=== PATIENT | male | born 1980 | race African-American/Black ===

== ENCOUNTER 2017-11-18 23:28 | Emergency (ER) | payer MEDICAID ==
[~2017-11-18] VITALS: Ht 182.9 cm; Wt 90.9 kg
[2017-11-18] MEDS ORDERED: DIPH25 PO (23:46)
[2017-11-18] MEDS ORDERED: BUPR100 PO (23:46)
[2017-11-19] MEDS ORDERED: SODIUM CHLORIDE 0.9% 1,000 ML IV ONE
[2017-11-19] MEDS ORDERED: LORazepam 2 MG/ML VIAL IVP ONE (00:15)
[2017-11-19] MEDS ORDERED: LORazepam 2 MG/ML VIAL IM ONE (00:30)
[2017-11-19 00:38] LABS: BASOPHILS % (AUTO) 0.9 % (0.0-2.0); EOSINOPHILS % (AUTO) 0.4 % (1.0-6.0); HEMATOCRIT 45.7 % (41-53); HEMOGLOBIN 15.1 g/dL (13.5-17.5); LYMPHOCYTES # (AUTO) 1.3 K/uL (1.0-4.8); LYMPHOCYTES % (AUTO) 19.4 % (22.0-44.0); MEAN CORPUSCULAR HGB CONC 33.1 G/dL (31.0-37.0); MEAN CORPUSCULAR VOLUME 88 fL (80-100); MONOCYTES # (AUTO) 0.4 K/uL (0.1-1.0); MONOCYTES % (AUTO) 6.5 % (2.0-9.0); NEUTROPHILS # (AUTO) 4.7 K/uL (1.8-7.7); NEUTROPHILS % (AUTO) 72.8 % (40.0-70.0); PLATELET COUNT (AUTO) 354 K/uL (150-450); RED BLOOD CELL COUNT(AUTO) 5.21 MIL/uL (4.50-5.90)
[2017-11-19 00:41] LABS: ANION GAP 8 mmol/L (8-16); CARBON DIOXIDE 27 mmol/L (22-29); CHLORIDE 100 mmol/L (98-107); CREATININE 1.09 mg/dL (0.60-1.30); GLOMERULAR FILTR. RATE CALC > 60 mL/min (>60); GLUCOSE,RANDOM 103 mg/dL (70-110); POTASSIUM 4.2 mmol/L (3.5-5.1); SODIUM SERUM 135 mmol/L (136-145); UREA NITROGEN, BLOOD 5 mg/dL (7-18)
[2017-11-19 00:47] LABS: ALANINE AMINOTRANSFERASE 43 U/L (12-78); ALBUMIN 3.7 g/dL (3.4-5.0); ALKALINE PHOSPHATASE 79 U/L (46-116); ASPARTATE AMINOTRANSFERASE 48 U/L (15-37); BILIRUBIN,TOTAL 0.6 mg/dL (0.1-1.0)
[2017-11-19 02:35] LABS: AMPHET/METH SCREEN,URINE POSITIVE (NEGATIVE); BARBITURATE SCREEN, URINE NEGATIVE (NEGATIVE); BENZODIAZEPINES SCREEN,URINE NEGATIVE (NEGATIVE); CANNABINOID SCREEN,URINE POSITIVE (NEGATIVE); COCAINE SCREEN,URINE POSITIVE (NEGATIVE); METHADONE SCREEN, URINE NEGATIVE (NEGATIVE); OPIATE SCREEN,URINE NEGATIVE (NEGATIVE)
[2017-11-19 02:39] LABS: PHENCYCLIDINE SCREEN,URINE NEGATIVE (NEGATIVE)
[2017-11-19 04:56] VITALS: BP 144/72
== END 2017-11-19 04:57 | disposition home or self-care (01) ==
LOC: EMS 23:29
DX: F19.10 Other psychoactive substance abuse, uncomplicated (principal); F12.90 Cannabis use, unspecified, uncomplicated; F17.210 Nicotine dependence, cigarettes, uncomplicated; Z88.6 Allergy status to analgesic agent; Z88.8 Allergy status to other drugs, medicaments and biological substances; Z91.018 Allergy to other foods; Z79.899 Other long term (current) drug therapy
CPT/HCPCS: 36415; 80053; 80307; 85025; 96372; 99285; G0480; J2060; J7030

== ENCOUNTER 2019-06-06 22:29 | Inpatient (IN) | payer MEDICAID ==
[~2019-06-06] VITALS: Ht 182.9 cm; Wt 83.2 kg
[~2019-06-06 22:29] MED LIST: BUPR100 PO; DIPH25 PO
[2019-06-06] MEDS ORDERED: ARIP2 PO (23:23)
[2019-06-06] MEDS ORDERED: ZIPR20CA2 PO (23:23)
[2019-06-06 23:39] LABS: EOSINOPHILS % (AUTO) 0 % (1.0-6.0); HEMATOCRIT 49.5 % (41-53); HEMOGLOBIN 16.4 g/dL (13.5-17.5); LYMPHOCYTES # (AUTO) 1.5 K/uL (1.0-4.8); MEAN CORPUSCULAR HEMOGLOBIN 29.2 pg (26.0-34.0); MEAN CORPUSCULAR HGB CONC 33.2 G/dL (31.0-37.0); MEAN CORPUSCULAR VOLUME 88 fL (80-100); MONOCYTES # (AUTO) 0.6 K/uL (0.1-1.0); MONOCYTES % (AUTO) 7.3 % (2.0-9.0); NEUTROPHILS # (AUTO) 6.5 K/uL (1.8-7.7); NEUTROPHILS % (AUTO) 74.7 % (40.0-70.0); PLATELET COUNT (AUTO) 270 K/uL (150-450); RED BLOOD CELL COUNT(AUTO) 5.63 MIL/uL (4.50-5.90); RED CELL DISTRIBUTION WIDTH 14.1 % (11.5-14.5)
[2019-06-06] MEDS ORDERED: SODIUM CHLORIDE 0.9% 1,000 ML IV ONE (23:45)
[2019-06-06] MEDS ORDERED: LORazepam 2 MG/ML VIAL IVP ONE (23:45)
[2019-06-06] MEDS ORDERED: ARIPiprazole 2 MG TABLET PO ONE (23:45)
[2019-06-06] MEDS ORDERED: ZIPRASIDONE HCL 40 MG CAPSULE PO ONE (23:45)
[2019-06-06] MEDS ORDERED: ACETAMINOPHEN 500 MG TABLET PO ONE (23:45)
[2019-06-06] MEDS ORDERED: ZIPRASIDONE HCL 20 MG CAPSULE PO ONE (23:45)
[2019-06-06 23:47] LABS: ANION GAP 2 mmol/L (8-16); CALCIUM, TOTAL 9.7 mg/dL (8.8-10.5); CARBON DIOXIDE 32 mmol/L (22-29); CHLORIDE 101 mmol/L (98-107); CREATININE 1.19 mg/dL (0.60-1.30); GLOMERULAR FILTR. RATE CALC > 60 mL/min (>60); GLUCOSE,RANDOM 95 mg/dL (70-110); POTASSIUM 4.4 mmol/L (3.5-5.1); SODIUM SERUM 135 mmol/L (136-145); UREA NITROGEN, BLOOD 6 mg/dL (7-18)
[2019-06-06 23:53] LABS: ALANINE AMINOTRANSFERASE 54 U/L (12-78); ALKALINE PHOSPHATASE 71 U/L (46-116); ASPARTATE AMINOTRANSFERASE 36 U/L (15-37); BILIRUBIN,TOTAL 0.4 mg/dL (0.1-1.0); TOTAL PROTEIN, SERUM 8.1 g/dL (6.4-8.2)
[2019-06-07 00:21] LABS: CREATINE KINASE, TOTAL ONLY 56 U/L (39-308)
[2019-06-07 00:32] LABS: AMPHET/METH SCREEN,URINE NEGATIVE (NEGATIVE); APPEARANCE,URINE CLEAR (CLEAR); BARBITURATE SCREEN, URINE NEGATIVE (NEGATIVE); BENZODIAZEPINES SCREEN,URINE NEGATIVE (NEGATIVE); BILIRUBIN,URINE NEGATIVE (NEGATIVE); CANNABINOID SCREEN,URINE POSITIVE (NEGATIVE); COCAINE SCREEN,URINE POSITIVE (NEGATIVE); GLUCOSE, URINE (UA) NEGATIVE (NEGATIVE); KETONES,URINE NEGATIVE (NEGATIVE); LEUKOCYTE ESTERASE ,URINE NEGATIVE (NEGATIVE); METHADONE SCREEN, URINE NEGATIVE (NEGATIVE); NITRATE,URINE NEGATIVE (NEGATIVE); OCCULT BLOOD,URINE NEGATIVE (NEGATIVE); OPIATE SCREEN,URINE NEGATIVE (NEGATIVE); PHENCYCLIDINE SCREEN,URINE NEGATIVE (NEGATIVE); PROTEIN,URINE NEGATIVE (NEGATIVE); UROBILINOGEN,URINE 0.2 mg/dL (<=1.0)
[2019-06-07 00:34] LABS: BACTERIA,URINE None Seen /HPF (None Seen); RBC,URINE 0-2 /HPF (0-2); WBC,URINE 0-2 /HPF (0-5)
[2019-06-07 00:35] LABS: SQUAMOUS EPITHELIAL CELL,UR None Seen /LPF (None Seen)
[2019-06-07] MEDS ORDERED: LORazepam 2 MG/ML VIAL IVP ONE (01:45)
[2019-06-07] MEDS ORDERED: ZIPRASIDONE HCL 80 MG CAPSULE PO ONE (01:45)
[2019-06-07] MEDS ORDERED: ZIPRASIDONE HCL 40 MG CAPSULE PO ONE (01:45)
[2019-06-07] MEDS ORDERED: MAG HYDROX/AL HYDROX/SIMETH ES 30 ML SUSPENSION UDCUP PO ONE (02:00)
[2019-06-07] MEDS ORDERED: LORazepam 1 MG TABLET PO PRN (02:45)
[2019-06-07 04:12] VITALS: BP 146/94
[2019-06-07] MEDS ORDERED: PNEUMOCOCCAL VACCINE POLYVALENT 0.5 ML VIAL [PPSV23] IM ONE (04:15)
[2019-06-07] MEDS ORDERED: INFLUENZA VIRUS VACCINE QVS 2019-20 (3YR+)/PF 60 MCG/0.5 ML SYRINGE IM ONE (04:15)
[2019-06-07 09:14] VITALS: BP 133/100
[2019-06-07] MEDS ORDERED: MAG HYDROX/AL HYDROX/SIMETH ES 30 ML SUSPENSION UDCUP PO PRN (11:45)
[2019-06-07] MEDS ORDERED: GuaiFENesin/D-METHORPHAN [SUGAR-FREE] 200-20MG/10 ML SYRUP UDCUP PO PRN (11:45)
[2019-06-07] MEDS ORDERED: HydrOXYzine PAMOATE 50 MG CAPSULE PO PRN (11:45)
[2019-06-07] MEDS ORDERED: ACETAMINOPHEN 325 MG TABLET PO PRN (11:45)
[2019-06-07] MEDS ORDERED: PROMETHAZINE HCL 25 MG TABLET PO PRN (11:45)
[2019-06-07] MEDS ORDERED: TUBERCULIN, PURIFIED PROTEIN DERIVATIVE 5 TU/0.1 ML SYRINGE ID ONE (11:45)
[2019-06-07] MEDS ORDERED: MAGNESIUM HYDROXIDE SUSPENSION 30 ML UDCUP PO PRN (11:45)
[2019-06-07] MEDS ORDERED: LOPERAMIDE HCL 2 MG CAPSULE PO PRN (11:45)
[2019-06-07] MEDS ORDERED: OLANZapine 5 MG RAPDIS TABLET PO PRN (11:45)
[2019-06-07 16:28] VITALS: BP 140/80
[2019-06-07] MEDS: THIAMINE HCL 100 MG TABLET PO SCH (16:40)
[2019-06-07] MEDS ORDERED: OLANZapine 5 MG RAPDIS TABLET PO SCH (21:00)
[2019-06-07] MEDS: ZOLPIDEM TARTRATE 10 MG TABLET PO PRN (21:08)
[2019-06-08 08:12] LABS: HEMOGLOBIN A1C 5.2 % (3.8-5.6)
[2019-06-08 08:15] LABS: CHOL/HDL RATIO 2.7 (4.2-7.3); FREE T4 (FREE THYROXINE) 1.1 ng/dL (0.76-1.46); THYROID STIMULATING HORMONE 3.22 uIU/mL (0.36-3.74)
[2019-06-08] MEDS: FOLIC ACID 1 MG TABLET PO SCH (08:15)
[2019-06-08] MEDS: NALTREXONE HCL 50 MG TABLET PO SCH (08:15)
[2019-06-08] MEDS: MULTIVITAMINS WITH MINERALS, THERAPEUTIC TABLET PO SCH (08:15)
[2019-06-08] MEDS: THIAMINE HCL 100 MG TABLET PO SCH ×2 (08:17→16:53)
[2019-06-08 08:30] VITALS: BP 129/77
[2019-06-08] MEDS ORDERED: ZIPRASIDONE HCL 20 MG CAPSULE PO ONE (13:45)
[2019-06-08] MEDS: ZIPRASIDONE HCL 20 MG CAPSULE PO SCH (16:53)
[2019-06-08 19:30] VITALS: BP 138/87
[2019-06-08] MEDS: ZOLPIDEM TARTRATE 10 MG TABLET PO PRN (20:40)
[2019-06-09 06:17] VITALS: BP 124/69
[2019-06-09] MEDS: ZIPRASIDONE HCL 20 MG CAPSULE PO SCH (06:35)
[2019-06-09] MEDS: NALTREXONE HCL 50 MG TABLET PO SCH (08:07)
[2019-06-09] MEDS: THIAMINE HCL 100 MG TABLET PO SCH ×2 (08:07→17:31)
[2019-06-09] MEDS: MULTIVITAMINS WITH MINERALS, THERAPEUTIC TABLET PO SCH (08:07)
[2019-06-09] MEDS: FOLIC ACID 1 MG TABLET PO SCH (08:07)
[2019-06-09 10:04] VITALS: BP 129/103
[2019-06-09] MEDS ORDERED: ZIPR40CA2 PO (16:43)
[2019-06-09] MEDS ORDERED: NALT50TA PO (16:43)
[2019-06-09] MEDS: ZIPRASIDONE HCL 40 MG CAPSULE PO SCH (17:31)
[2019-06-09] MEDS: DiphenhydrAMINE HCL 25 MG CAPSULE PO SCH (17:31)
[2019-06-09] MEDS: ZOLPIDEM TARTRATE 10 MG TABLET PO PRN (20:25)
[2019-06-09 20:51] VITALS: BP 135/96
[2019-06-10] MEDS: ZIPRASIDONE HCL 40 MG CAPSULE PO SCH ×2 (06:41→16:38)
[2019-06-10] MEDS: DiphenhydrAMINE HCL 25 MG CAPSULE PO SCH ×2 (08:49→16:38)
[2019-06-10] MEDS: NALTREXONE HCL 50 MG TABLET PO SCH (08:49)
[2019-06-10] MEDS: MULTIVITAMINS WITH MINERALS, THERAPEUTIC TABLET PO SCH (08:49)
[2019-06-10] MEDS: FOLIC ACID 1 MG TABLET PO SCH (08:49)
[2019-06-10] MEDS: THIAMINE HCL 100 MG TABLET PO SCH ×2 (08:49→16:38)
[2019-06-10] MEDS ORDERED: DIPH25CA85 PO (12:29)
[2019-06-10 14:42] VITALS: BP 114/69
== END 2019-06-10 18:00 | disposition home or self-care (01) | DRG 885 ==
LOC: EMS 22:29 → 3EI 06-07 03:00
PROVIDERS: ADMIT Psychiatry & Neurology Psychiatry; ATTEND Psychiatry & Neurology Psychiatry
DX: F25.9 Schizoaffective disorder, unspecified (principal); R45.851 Suicidal ideations; R03.0 Elevated blood-pressure reading, without diagnosis of hypertension; F10.10 Alcohol abuse, uncomplicated; F19.10 Other psychoactive substance abuse, uncomplicated; F17.210 Nicotine dependence, cigarettes, uncomplicated; Y90.9 Presence of alcohol in blood, level not specified; F14.10 Cocaine abuse, uncomplicated; F41.9 Anxiety disorder, unspecified; Z91.19 Patient's noncompliance with other medical treatment and regimen; Z87.01 Personal history of pneumonia (recurrent); Z91.14 Patient's other noncompliance with medication regimen
CPT/HCPCS: 71250; 83036; 84439; 84443; 86592; 87081; 93005; G0480; J2060; J7030